=== PATIENT | female | born 1945 | race Caucasian/White ===

== ENCOUNTER 2018-01-18 16:32 | Emergency (ER) | payer MEDICARE, MEDICAID ==
[~2018-01-18] VITALS: Ht 162.6 cm; Wt 113.0 kg
[~2018-01-18 16:32] MED LIST: AMBIEN PO; ASPI-1159 PO; ATOR40TA70 PO; FURO40TA5 PO; GLIP10TA10 PO; HYDR-4135 PO; ISOS60TA4 PO; LINA5TAB PO; LISI10TA5 PO; OMEP20CA10 PO; VALS320T2 PO; ZOLP10TA6 PO
[2018-01-18] MEDS ORDERED: INSU100I28 SQ (16:51)
[2018-01-18] MEDS ORDERED: TICA90TA PO (16:51)
[2018-01-18] MEDS ORDERED: MAGNESIUM/ALUMINUM HYDROXIDE/SIMETHICONE 30ML UDC PO STA (18:05)
[2018-01-18] MEDS ORDERED: FAMOTIDINE 20MG/2ML VIAL IV STA (18:05)
[2018-01-18] MEDS ORDERED: VISCOUS LIDOCAINE 2% 15 ML UDC PO STA (18:05)
[2018-01-18 19:08] LABS: PROTHROMBIN TIME 10.7 sec (9.4-11.6)
[2018-01-18 19:12] LABS: BASOPHILS % 0.7 % (0.0-2.0); CHLORIDE 106 mEq/L (98-107); EOSINOPHILS % 2.1 % (0.0-5.0); HEMATOCRIT. 38.6 % (36.0-48.0); HEMOGLOBIN. 13.2 g/dL (12.0-16.0); LYMPHOCYTES % 18.7 % (20.0-50.0); MEAN CORPUSCULAR VOLUME 90.6 fL (81.0-99.0); MEAN PLATELET VOLUME 7.7 fl (7.4-10.4); MONOCYTES % 5.6 % (2.0-8.0); NEUTROPHILS % 72.9 % (40.0-76.0); PLATELET 234 x1000/uL (130-400); RED BLOOD CELL COUNT 4.26 mill/uL (4.2-5.4); RED CELL DISTRIBUTION WIDTH 13.6 % (11.6-14.6)
[2018-01-18 19:19] LABS: TROPONIN I 0.02 ng/mL (0.00-0.04)
[2018-01-18] MEDS ORDERED: SODIUM CHLORIDE 0.9% 1,000 ML IV ONE (19:22)
[2018-01-18 20:11] VITALS: BP 145/75
== END 2018-01-18 20:13 | disposition home or self-care (01) ==
LOC: ER 17:34
DX: K21.9 Gastro-esophageal reflux disease without esophagitis (principal); K29.70 Gastritis, unspecified, without bleeding; N28.9 Disorder of kidney and ureter, unspecified; R20.0 Anesthesia of skin; I10 Essential (primary) hypertension; E11.9 Type 2 diabetes mellitus without complications; I25.10 Atherosclerotic heart disease of native coronary artery without angina pectoris; Z95.5 Presence of coronary angioplasty implant and graft; Z87.891 Personal history of nicotine dependence; Z88.0 Allergy status to penicillin; Z79.4 Long term (current) use of insulin; Z79.82 Long term (current) use of aspirin
CPT/HCPCS: 36415; 71045; 76705; 80053; 83605; 83690; 84484; 85025; 85610; 93005; 96374; 99285; J3490

== ENCOUNTER 2019-07-23 21:06 | Inpatient (IN) | payer MEDICARE, MEDICAID ==
[~2019-07-23] VITALS: Ht 162.6 cm; Wt 119.7 kg
[~2019-07-23 21:06] MED LIST changes: -ASPI-1159 PO; +ASPI-1393 PO; +INSU100I28 SQ; -LISI10TA5 PO; -OMEP20CA10 PO; +OMEP20CA5 PO; +TICA90TA PO
[2019-07-23] MEDS ORDERED: ASPIRIN 81MG TABLET PO ONE (21:30)
[2019-07-23] MEDS ORDERED: NITROGLYCERIN 0.4MG TABLET SL SL PRN (21:30)
[2019-07-23 21:45] LABS: BASOPHILS % 0.6 % (0.0-2.0); EOSINOPHILS % 4.2 % (0.0-5.0); HEMATOCRIT. 32.4 % (36.0-48.0); HEMOGLOBIN. 11.2 g/dL (12.0-16.0); LYMPHOCYTES % 25.8 % (20.0-50.0); MEAN CORPUSCULAR HEMOGLOBIN 30.7 pg (28.0-32.0); MEAN PLATELET VOLUME 7.4 fl (7.4-10.4); NEUTROPHILS % 60.4 % (40.0-76.0); PLATELET 201 x1000/uL (130-400); RED BLOOD CELL COUNT 3.64 mill/uL (4.2-5.4); RED CELL DISTRIBUTION WIDTH 14.2 % (11.6-14.6)
[2019-07-23 21:52] LABS: CHLORIDE 107 mEq/L (98-107)
[2019-07-23] MEDS ORDERED: ACETAMINOPHEN 325MG TABLET PO PRN (22:15)
[2019-07-23] MEDS ORDERED: IPRATROPIUM/ALBUTEROL 0.5-3(2.5)MG/3ML NEB HHN PRN (22:15)
[2019-07-24 02:28] LABS: CHLORIDE 107 mEq/L (98-107)
[2019-07-24] MEDS ORDERED: HYDRALAZINE 20MG/ML VIAL IV PRN ×2 (04:15→13:45)
[2019-07-24 06:09] LABS: BASOPHILS % 0.6 % (0.0-2.0); EOSINOPHILS % 4.4 % (0.0-5.0); HEMATOCRIT. 29.9 % (36.0-48.0); HEMOGLOBIN. 10.4 g/dL (12.0-16.0); LYMPHOCYTES % 24.6 % (20.0-50.0); MEAN CORPUSCULAR HEMOGLOBIN 30.9 pg (28.0-32.0); MEAN PLATELET VOLUME 7.5 fl (7.4-10.4); MONOCYTES % 9.5 % (2.0-8.0); NEUTROPHILS % 60.9 % (40.0-76.0); PLATELET 188 x1000/uL (130-400); RED BLOOD CELL COUNT 3.35 mill/uL (4.2-5.4); RED CELL DISTRIBUTION WIDTH 14.2 % (11.6-14.6)
[2019-07-24 06:18] LABS: T4 FREE 0.93 ng/dL (0.76-1.46)
[2019-07-24] MEDS ORDERED: ENOXAPARIN 40MG/0.4ML SYR SUBCUT SCH (08:00)
[2019-07-24 09:30] VITALS: BP 169/50
[2019-07-24] MEDS ORDERED: DOXA2TAB2 PO (11:12)
[2019-07-24] MEDS ORDERED: LORA10TA7 PO (11:12)
[2019-07-24] MEDS ORDERED: LOSA100T32 PO (11:19)
[2019-07-24 12:00] VITALS: BP 153/42
[2019-07-24] MEDS: AMLODIPINE 5MG TABLET PO SCH (12:00)
[2019-07-24] MEDS ORDERED: HYDROCODONE/ACETAMINOPHEN 5/325MG TABLET PO PRN ×2 (12:00→15:45)
[2019-07-24] MEDS ORDERED: LORAZEPAM 2MG/ML CPJ IV PRN (12:00)
[2019-07-24] MEDS: ASPIRIN 81MG EC TABLET PO SCH (12:48)
[2019-07-24 13:15] LABS: CREATINE KINASE MB FRACTION 1.3 ng/mL (0.5-3.6)
[2019-07-24 13:30] VITALS: BP 153/42
[2019-07-24] MEDS ORDERED: REGADENOSON 0.4 MG/5 ML IV NR (13:30)
[2019-07-24] MEDS ORDERED: REGADENOSON 0.4 MG/5 ML IV ONE (14:29)
[2019-07-24] MEDS ORDERED: DIPHENHYDRAMINE 50MG/ML VIAL IV PRN (15:45)
[2019-07-24] MEDS ORDERED: PNEUMOCOCCAL 23-VAL P-SAC VAC 0.5 ML IM ONE (15:45)
[2019-07-24] MEDS ORDERED: IPRATROPIUM/ALBUTEROL 0.5-3(2.5)MG/3ML NEB HHN PRN (15:45)
[2019-07-24] MEDS ORDERED: LACTULOSE 20G/30ML UDC PO PRN (15:45)
[2019-07-24 15:59] LABS: BG BASE EXCESS -0.7 mmol/L (-2.0-2.0); BG CARBOXYHEMOGLOBIN 0.3 % (0.5-1.5); BG DEOXYHEMOGLOBIN 5.8 % (0.0-5.0); BG HCO3 ACT 23.4 mmol/L (22.0-26.0); BG METHEMOGLOBIN 0.3 % (0.0-1.5); BG OXYGEN SATURATION 94.2 % (92.0-98.5); BG OXYHEMOGLOBIN 93.6 % (94.0-97.0); BG PCO2 36.7 mmHg (35.0-45.0); BG PH 7.422 (7.350-7.450); BG PO2 71.2 mmHg (75.0-100.0); BG SAMPLE SITE RIGHT BRACHIAL; BG TOTAL HEMOGLOBIN 11.5 g/dL (12.0-18.0); BG VENT MODE ROOM AIR
[2019-07-24 16:00] VITALS: BP 149/35
[2019-07-24] MEDS ORDERED: LEVOFLOXACIN 500MG PREMIX 100 ML IV SCH (17:30)
[2019-07-24] MEDS ORDERED: DEXTROSE 50% WATER 50ML SYRINGE IV PRN (17:45)
[2019-07-24 17:58] LABS: CREATINE KINASE 117 IU/L (26-192)
[2019-07-24] MEDS: INSULIN LISPRO 100 UNITS/ML SUBCUT SCH ×2 (18:32→22:00)
[2019-07-24] MEDS ORDERED: SIMETHICONE 40 MG/0.6 ML 30ML PO PRN (18:40)
[2019-07-24 20:00] VITALS: BP 157/48
[2019-07-24] MEDS ORDERED: ENOXAPARIN 30MG/0.3ML SYR SUBCUT SCH (21:00)
[2019-07-24 21:52] LABS: PROTHROMBIN TIME 10.6 sec (9.6-11.0)
[2019-07-24] MEDS: FLUTICASONE PROPIONATE 50MCG/SPRAY BOTTLE BOTHNSTRLS SCH (21:59)
[2019-07-24] MEDS: BLOOD SUGAR DIAGNOSTIC STRIP TEST SCH (21:59)
[2019-07-24] MEDS: FAMOTIDINE 20MG TABLET PO SCH (21:59)
[2019-07-24 22:44] LABS: CLARITY URINE CLOUDY (CLEAR); COLOR URINE YELLOW (YELLOW); KETONES URINE NEGATIVE (NEGATIVE); LEUKOCYTE ESTERASE URINE TRACE (NEGATIVE); NITRITE URINE POSITIVE (NEGATIVE); OCCULT BLOOD URINE TRACE (NEGATIVE); PH URINE 5.5 (4.5-8.0); PROTEIN URINE 3+ (NEGATIVE); SPECIFIC GRAVITY URINE 1.011 (1.005-1.030); UROBILINOGEN URINE 0.2 E.U./dL (0.2-1.0)
[2019-07-24] MEDS: ENOXAPARIN 30MG/0.3ML SYR SUBCUT SCH (23:00)
[2019-07-24 23:01] LABS: *AMPHETAMINES SCREEN URINE NEGATIVE (NEGATIVE); *BARBITURATES SCREEN URINE NEGATIVE (NEGATIVE); *BENZODIAZEPINES SCREEN URINE NEGATIVE (NEGATIVE); *COCAINE SCREEN URINE NEGATIVE (NEGATIVE); METHADONE URINE SCREEN NEGATIVE (NEGATIVE); OPIATES URINE SCREEN NEGATIVE (NEGATIVE)
[2019-07-24 23:02] LABS: CANNABINOID URINE SCREEN NEGATIVE (NEGATIVE); PHENCYCLIDINE URINE SCREEN NEGATIVE (NEGATIVE)
[2019-07-25] VITALS: BP 144/52
[2019-07-25 04:00] VITALS: BP 141/67
[2019-07-25 06:07] LABS: HEMATOCRIT 30.4 % (36.0-48.0); HEMOGLOBIN 10.3 g/dL (12.0-16.0); MEAN CORPUSCULAR HEMOGLOBIN 30.6 pg (28.0-32.0); MEAN CORPUSCULAR VOLUME 90.1 fL (81.0-99.0); PLATELET 184 x1000/uL (130-400); RED BLOOD CELL COUNT 3.37 mill/uL (4.2-5.4); RED CELL DISTRIBUTION WIDTH 14.4 % (11.6-14.6)
[2019-07-25] MEDS: BLOOD SUGAR DIAGNOSTIC STRIP TEST SCH ×2 (06:19→12:40)
[2019-07-25 06:39] LABS: TOTAL IRON BINDING CAPACITY 263 ug/dL (250-450)
[2019-07-25 08:00] VITALS: BP 145/59
[2019-07-25] MEDS: INSULIN LISPRO 100 UNITS/ML SUBCUT SCH ×2 (08:10→13:10)
[2019-07-25] MEDS: FLUTICASONE PROPIONATE 50MCG/SPRAY BOTTLE BOTHNSTRLS SCH (09:03)
[2019-07-25] MEDS: FAMOTIDINE 20MG TABLET PO SCH (09:03)
[2019-07-25] MEDS: ASPIRIN 81MG EC TABLET PO SCH (09:03)
[2019-07-25] MEDS: AMLODIPINE 5MG TABLET PO SCH (09:03)
[2019-07-25] MEDS: ENOXAPARIN 30MG/0.3ML SYR SUBCUT SCH (09:04)
[2019-07-25 12:00] VITALS: BP 139/60
== END 2019-07-25 14:20 | disposition home or self-care (01) | DRG 205 ==
LOC: ER 22:00 → 7WST 22:11 → EDBEDREQTM 22:15 → EDBEDREQ 22:15 → ENRESERV 07-24 07:17
PROVIDERS: ADMIT Internal Medicine; ATTEND Internal Medicine
DX: M94.0 Chondrocostal junction syndrome [Tietze] (principal); I50.33 Acute on chronic diastolic (congestive) heart failure; N39.0 Urinary tract infection, site not specified; D68.59 Other primary thrombophilia; Z68.42 Body mass index [BMI] 45.0-49.9, adult; E66.2 Morbid (severe) obesity with alveolar hypoventilation; I16.0 Hypertensive urgency; I11.0 Hypertensive heart disease with heart failure; D64.9 Anemia, unspecified; E11.65 Type 2 diabetes mellitus with hyperglycemia; E66.9 Obesity, unspecified; E78.5 Hyperlipidemia, unspecified; I25.10 Atherosclerotic heart disease of native coronary artery without angina pectoris; I35.0 Nonrheumatic aortic (valve) stenosis; J06.9 Acute upper respiratory infection, unspecified; J32.9 Chronic sinusitis, unspecified; R00.1 Bradycardia, unspecified; I07.1 Rheumatic tricuspid insufficiency; Z87.891 Personal history of nicotine dependence; Z95.5 Presence of coronary angioplasty implant and graft; I25.2 Old myocardial infarction; Z88.0 Allergy status to penicillin; Z79.899 Other long term (current) drug therapy; Z71.3 Dietary counseling and surveillance
CPT/HCPCS: 36415; 36600; 71045; 71250; 78452; 80048; 80061; 80305; 81003; 82375; 82550; 82553; 82805; 82962; 83036; 83540; 83550; 83880; 84439; 84443; 84484; 85027; 90732; 93005; 93017; 93306; 96374; 99285; A9500; J0360; J1650; J1815; J1956; J2785

== ENCOUNTER → 2021-04-09 | Outpatient (CLI) | payer MEDICARE, MEDICAID ==
[~2021-04-09] MED LIST changes: -AMBIEN PO; -ASPI-1393 PO; +ASPI-1497 PO; +DOXA2TAB2 PO; -ISOS60TA4 PO; +LORA10TA7 PO; +LOSA100T32 PO; +OMEP20CA14 PO; -OMEP20CA5 PO; -TICA90TA PO; -VALS320T2 PO
== END | disposition home or self-care (01) ==
LOC: RAD 07:33
PROVIDERS: ATTEND Specialist
DX: R06.02 Shortness of breath (principal); R05 Cough; M47.814 Spondylosis without myelopathy or radiculopathy, thoracic region
CPT/HCPCS: 71046

== ENCOUNTER 2021-04-16 12:59 | Inpatient (IN) | payer MEDICARE, MEDICAID ==
[~2021-04-16] VITALS: Ht 162.6 cm; Wt 117.1 kg
[2021-04-16] MEDS ORDERED: PHENYLEPHRINE HCL 0.5% 15ML NASAL SPRAY BOTHNSTRLS ONE (13:15)
[2021-04-16 14:10] LABS: CHLORIDE 108 mEq/L (98-107)
[2021-04-16 14:11] LABS: BASOPHILS % 0.8 % (0.0-2.0); EOSINOPHILS % 1.3 % (0.0-5.0); LYMPHOCYTES % 24.4 % (20.0-50.0); MEAN CORPUSCULAR HEMOGLOBIN 22.2 pg (28.0-32.0); MEAN CORPUSCULAR VOLUME 71.9 fL (81.0-99.0); MEAN PLATELET VOLUME 7.5 fl (7.4-10.4); MONOCYTES % 8.5 % (2.0-8.0); PLATELET 273 x1000/uL (130-400); RED BLOOD CELL COUNT 2.68 mill/uL (4.2-5.4); RED CELL DISTRIBUTION WIDTH 24.8 % (11.6-14.6)
[2021-04-16 14:25] LABS: HEMATOCRIT. 19.3 % (36.0-48.0)
[2021-04-16] MEDS: LOSARTAN POTASSIUM 25 MG TABLET PO SCH (14:50)
[2021-04-16] MEDS: FUROSEMIDE 40MG/4ML VIAL IVP SCH (14:50)
[2021-04-16] MEDS ORDERED: HYDROCODONE/ACETAMINOPHEN 5/325MG TABLET PO PRN (15:15)
[2021-04-16] MEDS ORDERED: DOCUSATE SODIUM 100MG CAPSULE PO PRN (15:15)
[2021-04-16] MEDS ORDERED: IPRATROPIUM/ALBUTEROL 0.5-3(2.5)MG/3ML NEB NEB PRN (15:15)
[2021-04-16] MEDS ORDERED: NA PHOS,M-B/NA PHOS,DI-BA ENEMA 118ML PR PRN (15:15)
[2021-04-16] MEDS ORDERED: MORPHINE SULFATE 2 MG/ML CPJ (NOT FOR IM USE) IV PRN (15:15)
[2021-04-16] MEDS ORDERED: ACETAMINOPHEN 650MG SUPP PR PRN (15:15)
[2021-04-16] MEDS ORDERED: MAGNESIUM/ALUMINUM HYDROXIDE/SIMETHICONE 30ML UDC PO PRN (15:15)
[2021-04-16] MEDS ORDERED: LORAZEPAM 0.5MG TABLET PO PRN (15:15)
[2021-04-16] MEDS ORDERED: DEXTROSE 50% WATER 50ML SYRINGE IV PRN (15:15)
[2021-04-16] MEDS ORDERED: GUAIFENESIN 200MG/10ML SUGAR FREE UDC PO PRN (15:15)
[2021-04-16] MEDS ORDERED: DIPHENHYDRAMINE 50MG/ML VIAL IV PRN (15:15)
[2021-04-16] MEDS ORDERED: ONDANSETRON HCL 4MG/2ML INJ IV PRN (15:15)
[2021-04-16] MEDS ORDERED: ACETAMINOPHEN 325MG TABLET PO PRN (15:15)
[2021-04-16] MEDS ORDERED: CLONIDINE 0.1MG TABLET PO PRN (15:15)
[2021-04-16 15:52] LABS: PLATELET ESTIMATE NORMAL
[2021-04-16 15:54] LABS: D-DIMER 0.95 mg/L FEU (<0.50); INR 1.4
[2021-04-16] MEDS: PANTOPRAZOLE SODIUM 40 MG/VIAL IV SCH (16:48)
[2021-04-16] MEDS: INSULIN LISPRO 100 UNITS/ML SUBCUT SCH ×2 (18:48→21:08)
[2021-04-16] MEDS: BLOOD SUGAR DIAGNOSTIC STRIP TEST SCH ×2 (18:58→21:02)
[2021-04-16] MEDS ORDERED: FUROSEMIDE 40MG/4ML VIAL IVP NR (19:00)
[2021-04-16] MEDS: ATORVASTATIN CALCIUM 40MG TABLET PO SCH (21:16)
[2021-04-16 22:36] LABS: CREATINE KINASE MB FRACTION 1.3 ng/mL (0.5-3.6)
[2021-04-16 23:00] VITALS: BP 165/46
[2021-04-16 23:50] LABS: HEMOGLOBIN 7.2 g/dL (12.0-16.0)
[2021-04-17] VITALS (16 sets, daily range): BP systolic 136–203; BP diastolic 29–98
[2021-04-17 00:04] LABS: INR 1.2; PROTHROMBIN TIME 12.9 sec (9.6-11.0)
[2021-04-17] MEDS ORDERED: ALPR-339 PO (00:45)
[2021-04-17] MEDS ORDERED: HYDR-4135 PO (00:47)
[2021-04-17] MEDS ORDERED: RIVA20TA PO (00:50)
[2021-04-17] MEDS ORDERED: *PATIENT'S OWN MEDICATION STORAGE XX SCH (04:00)
[2021-04-17] MEDS: BLOOD SUGAR DIAGNOSTIC STRIP TEST SCH ×4 (06:27→21:16)
[2021-04-17] MEDS: INSULIN LISPRO 100 UNITS/ML SUBCUT SCH ×4 (06:28→21:23)
[2021-04-17 07:18] LABS: CHLORIDE 112 mEq/L (98-107)
[2021-04-17 07:27] LABS: BASOPHILS % 0.9 % (0.0-2.0); HEMOGLOBIN. 7.2 g/dL (12.0-16.0); LYMPHOCYTES % 21.6 % (20.0-50.0); MEAN CORPUSCULAR HEMOGLOBIN 23.7 pg (28.0-32.0); MEAN CORPUSCULAR VOLUME 76.1 fL (81.0-99.0); MEAN PLATELET VOLUME 8.1 fl (7.4-10.4); MONOCYTES % 10.4 % (2.0-8.0); NEUTROPHILS % 64.1 % (40.0-76.0); PLATELET 238 x1000/uL (130-400); RED BLOOD CELL COUNT 3.02 mill/uL (4.2-5.4); RED CELL DISTRIBUTION WIDTH 24.8 % (11.6-14.6)
[2021-04-17 07:36] LABS: CLARITY URINE CLEAR (CLEAR); COLOR URINE YELLOW (YELLOW); KETONES URINE NEGATIVE (NEGATIVE); LEUKOCYTE ESTERASE URINE NEGATIVE (NEGATIVE); NITRITE URINE NEGATIVE (NEGATIVE); OCCULT BLOOD URINE NEGATIVE (NEGATIVE); PH URINE 5.5 (4.5-8.0); PROTEIN URINE 3+ (NEGATIVE); SPECIFIC GRAVITY URINE 1.014 (1.005-1.030); UROBILINOGEN URINE 0.2 E.U./dL (0.2-1.0)
[2021-04-17 07:37] LABS: LDL CHOLESTEROL 46 mg/dL (5-100)
[2021-04-17 07:38] LABS: CREATINE KINASE 70 IU/L (26-192); FOLIC ACID (FOLATE) SERUM 9.9 ng/mL (>5.38); TOTAL IRON BINDING CAPACITY 410 ug/dL (250-450)
[2021-04-17 07:39] LABS: HDL CHOLESTEROL 31 mg/dL (40-59)
[2021-04-17 07:41] LABS: T4 FREE 1.21 ng/dL (0.76-1.46)
[2021-04-17] MEDS: LOSARTAN POTASSIUM 25 MG TABLET PO SCH (09:00)
[2021-04-17] MEDS: PANTOPRAZOLE SODIUM 40 MG/VIAL IV SCH (09:06)
[2021-04-17] MEDS: FUROSEMIDE 40MG/4ML VIAL IVP SCH (09:06)
[2021-04-17] MEDS ORDERED: CEFAZOLIN 1000MG PREMIX 0 ML IV ONE (12:10)
[2021-04-17] MEDS ORDERED: GENTAMICIN/NS IRRIGATION 500 ML IR ONE (12:18)
[2021-04-17] MEDS ORDERED: GENTAMICIN SULF 40MG/ML 2ML VIAL ONE (12:20)
[2021-04-17] MEDS ORDERED: LIDOCAINE HCL 1% 20ML VIAL (Pyxis) INJ ONE ×2 (12:22→13:58)
[2021-04-17] MEDS ORDERED: CLINDAMYCIN 900 MG in DEXTROSE 5% WATER 50 ML IV SCH (12:30)
[2021-04-17] MEDS ORDERED: CLINDAMYCIN 900 MG PREMIX 50 ML IV SCH (12:45)
[2021-04-17] MEDS ORDERED: CLINDAMYCIN 900 MG in DEXTROSE 5% WATER 50 ML IV NR (12:45)
[2021-04-17] MEDS ORDERED: FENTANYL CITRATE/PF 50MCG/ML 2ML VIAL ONE ×2 (12:51→14:22)
[2021-04-17] MEDS ORDERED: MIDAZOLAM HCL 2 MG/2 ML VIAL ONE ×3 (12:52→14:51)
[2021-04-17] MEDS ORDERED: IODIXANOL 320MG/ML 200ML BOTTLE ONE (13:06)
[2021-04-17] MEDS ORDERED: HYDRALAZINE 20MG/ML VIAL ONE (14:44)
[2021-04-17] MEDS ORDERED: AMIODARONE HCL 900 MG in DEXT 5% WATER 482 ML IV SCH (16:15)
[2021-04-17] MEDS ORDERED: IRON SUCROSE COMPLEX 100 MG/5 ML ML IV SCH (17:00)
[2021-04-17] MEDS: ATORVASTATIN CALCIUM 40MG TABLET PO SCH (21:16)
[2021-04-18] VITALS (10 sets, daily range): BP systolic 143–197; BP diastolic 49–77
[2021-04-18] MEDS: CLINDAMYCIN 600 MG in DEXTROSE 5% WATER 50 ML IV SCH ×2 (00:13→08:20)
[2021-04-18] MEDS ORDERED: AMLODIPINE 10MG TABLET PO SCH (02:00)
[2021-04-18] MEDS: BLOOD SUGAR DIAGNOSTIC STRIP TEST SCH ×2 (06:08→11:28)
[2021-04-18 06:21] LABS: BASOPHILS % 0.6 % (0.0-2.0); EOSINOPHILS % 2.3 % (0.0-5.0); HEMATOCRIT. 26.2 % (36.0-48.0); HEMOGLOBIN. 8.2 g/dL (12.0-16.0); LYMPHOCYTES % 14.4 % (20.0-50.0); MEAN CORPUSCULAR HEMOGLOBIN 24.4 pg (28.0-32.0); MEAN CORPUSCULAR VOLUME 77.9 fL (81.0-99.0); MEAN PLATELET VOLUME 7.4 fl (7.4-10.4); MONOCYTES % 10.4 % (2.0-8.0); NEUTROPHILS % 72.3 % (40.0-76.0); PLATELET 231 x1000/uL (130-400); RED BLOOD CELL COUNT 3.37 mill/uL (4.2-5.4); RED CELL DISTRIBUTION WIDTH 25.4 % (11.6-14.6)
[2021-04-18 06:38] LABS: CHLORIDE 109 mEq/L (98-107)
[2021-04-18] MEDS: FUROSEMIDE 40MG/4ML VIAL IVP SCH (08:21)
[2021-04-18] MEDS: PANTOPRAZOLE SODIUM 40 MG/VIAL IV SCH (08:21)
[2021-04-18] MEDS: INSULIN LISPRO 100 UNITS/ML SUBCUT SCH ×2 (08:22→11:47)
[2021-04-18] MEDS: LOSARTAN POTASSIUM 25 MG TABLET PO SCH (08:32)
[2021-04-18] MEDS ORDERED: LOSARTAN POTASSIUM 100 MG TABLET PO NR (11:45)
[2021-04-18] MEDS ORDERED: AMIODARONE HCL 200 MG TABLET PO SCH (12:00)
[2021-04-18] MEDS ORDERED: FURO-151 MT (12:43)
[2021-04-18] MEDS ORDERED: AMI2 PO (12:43)
[2021-04-18] MEDS ORDERED: TRAM50TA3 MT ×2 (12:43→12:44)
[2021-04-18] MEDS ORDERED: SULF1TAB48 MT (12:58)
== END 2021-04-18 15:15 | disposition home or self-care (01) | DRG 243 ==
LOC: ER 12:59 → EDBEDREQ 15:45 → ENRESERV 22:12 → 5WST 04-17 00:04 → 3WST 04-17 16:11
PROVIDERS: ADMIT Internal Medicine; ATTEND Internal Medicine
PROC: 30233M1 Transfusion of Nonautologous Plasma Cryoprecipitate into Peripheral Vein, Percutaneous Approach (ICD-10-PCS; 2021-04-16)
PROC: 30233N1 Transfusion of Nonautologous Red Blood Cells into Peripheral Vein, Percutaneous Approach (ICD-10-PCS; 2021-04-16)
PROC: 0JH606Z Insertion of Pacemaker, Dual Chamber into Chest Subcutaneous Tissue and Fascia, Open Approach (ICD-10-PCS; principal; 2021-04-17)
PROC: 02HK3JZ Insertion of Pacemaker Lead into Right Ventricle, Percutaneous Approach (ICD-10-PCS; 2021-04-17)
PROC: 02H63JZ Insertion of Pacemaker Lead into Right Atrium, Percutaneous Approach (ICD-10-PCS; 2021-04-17)
PROC: B517YZZ Fluoroscopy of Left Subclavian Vein using Other Contrast (ICD-10-PCS; 2021-04-17)
PROC: 4A023N6 Measurement of Cardiac Sampling and Pressure, Right Heart, Percutaneous Approach (ICD-10-PCS; 2021-04-17)
PROC: 5A2204Z Restoration of Cardiac Rhythm, Single (ICD-10-PCS; 2021-04-17)
DX: I49.5 Sick sinus syndrome (principal); Z68.41 Body mass index [BMI] 40.0-44.9, adult; I48.4 Atypical atrial flutter; I48.0 Paroxysmal atrial fibrillation; I16.0 Hypertensive urgency; I27.29 Other secondary pulmonary hypertension; I10 Essential (primary) hypertension; I25.10 Atherosclerotic heart disease of native coronary artery without angina pectoris; R04.0 Epistaxis; E11.9 Type 2 diabetes mellitus without complications; E78.5 Hyperlipidemia, unspecified; D50.9 Iron deficiency anemia, unspecified; E66.9 Obesity, unspecified; I35.0 Nonrheumatic aortic (valve) stenosis; F41.0 Panic disorder [episodic paroxysmal anxiety]; Z20.822 Contact with and (suspected) exposure to COVID-19; E88.09 Other disorders of plasma-protein metabolism, not elsewhere classified; Z53.20 Procedure and treatment not carried out because of patient's decision for unspecified reasons; I25.2 Old myocardial infarction; Z88.0 Allergy status to penicillin; Z88.8 Allergy status to other drugs, medicaments and biological substances; Z79.899 Other long term (current) drug therapy; Z79.4 Long term (current) use of insulin; Z79.82 Long term (current) use of aspirin; Z95.5 Presence of coronary angioplasty implant and graft; Z79.01 Long term (current) use of anticoagulants; Z87.891 Personal history of nicotine dependence; Z86.16 Personal history of COVID-19; Z87.01 Personal history of pneumonia (recurrent); Z82.49 Family history of ischemic heart disease and other diseases of the circulatory system
CPT/HCPCS: 33208; 36415; 71045; 75820; 76700; 80048; 80053; 80061; 81003; 82550; 82553; 82607; 82728; 82746; 82962; 83036; 83540; 83550; 83735; 83880; 84439; 84443; 84484; 85014; 85018; 85025; 85044; 85049; 85379; 85384; 86850; 86900; 86920; 86927; 87426; 92960; 93005; 93306; 93451; 93970; 99291; C1785; C1893; C1898; C9113; J0282; J0360; J0690; J1580; J1644; J1815; J1940; J2250; J3010; J3490; J7040; J7060; P9016; P9017; Q9967

== ENCOUNTER 2021-07-06 09:07 | Inpatient (IN) | payer MEDICARE, MEDICAID ==
[~2021-07-06] VITALS: Ht 157.5 cm; Wt 115.4 kg
[~2021-07-06 09:07] MED LIST changes: +ALPR-339 PO; +AMI2 PO; -ASPI-1497 PO; +FURO-151 MT; -OMEP20CA14 PO; +SULF1TAB48 MT; +TRAM50TA3 MT
[2021-07-06 10:17] LABS: BASOPHILS % 0.7 % (0.0-2.0); EOSINOPHILS % 1.6 % (0.0-5.0); LYMPHOCYTES % 12.1 % (20.0-50.0); MEAN CORPUSCULAR HEMOGLOBIN 23.6 pg (28.0-32.0); MEAN CORPUSCULAR VOLUME 76.1 fL (81.0-99.0); MEAN PLATELET VOLUME 7.5 fl (7.4-10.4); NEUTROPHILS % 76.6 % (40.0-76.0); PLATELET 286 x1000/uL (130-400); RED BLOOD CELL COUNT 2.51 mill/uL (4.2-5.4); RED CELL DISTRIBUTION WIDTH 22.4 % (11.6-14.6)
[2021-07-06 10:20] LABS: CHLORIDE 106 mEq/L (98-107)
[2021-07-06 10:25] LABS: HEMOGLOBIN. 5.9 g/dL (12.0-16.0)
[2021-07-06 10:26] LABS: HEMATOCRIT. 19.1 % (36.0-48.0)
[2021-07-06 10:53] LABS: PLATELET ESTIMATE NORMAL
[2021-07-06] MEDS ORDERED: ENALAPRIL 1.25MG/ML VIAL 1ML IV ONE (12:45)
[2021-07-06] MEDS ORDERED: ENALAPRIL 2.5MG/2ML VIAL 2ML IV ONE (12:45)
[2021-07-06] MEDS ORDERED: FUROSEMIDE 40MG/4ML VIAL IVP ONE (12:45)
[2021-07-06] MEDS ORDERED: ACETAMINOPHEN 325MG TABLET PO PRN (13:15)
[2021-07-06] MEDS ORDERED: ONDANSETRON HCL 4MG/2ML INJ IV PRN (13:15)
[2021-07-06] MEDS: FUROSEMIDE 40MG/4ML VIAL IVP SCH ×2 (14:15→18:32)
[2021-07-06] MEDS ORDERED: ENALAPRIL 1.25MG/ML VIAL 1ML IV NR (14:30)
[2021-07-06] MEDS: AMIODARONE HCL 200 MG TABLET PO SCH (15:55)
[2021-07-06] MEDS: BLOOD SUGAR DIAGNOSTIC STRIP TEST SCH ×2 (17:00→20:44)
[2021-07-06] MEDS ORDERED: DEXTROSE 50% WATER 50ML SYRINGE IV PRN (17:00)
[2021-07-06 17:15] VITALS: BP 135/39
[2021-07-06] MEDS: INSULIN LISPRO 100 UNITS/ML SUBCUT SCH ×2 (17:31→20:44)
[2021-07-06 17:35] VITALS: BP 135/39
[2021-07-06] MEDS: FERROUS SULFATE 325MG TABLET PO SCH (18:32)
[2021-07-06] MEDS: DOCUSATE SODIUM 100MG CAPSULE PO SCH (18:32)
[2021-07-06 20:00] VITALS: BP 138/48
[2021-07-06 22:07] VITALS: BP 141/40
[2021-07-06 22:37] VITALS: BP 158/54
[2021-07-06 23:29] VITALS: BP 131/46
[2021-07-07] VITALS (13 sets, daily range): BP systolic 115–153; BP diastolic 40–63
[2021-07-07] MEDS: BLOOD SUGAR DIAGNOSTIC STRIP TEST SCH ×4 (06:17→20:53)
[2021-07-07] MEDS: INSULIN LISPRO 100 UNITS/ML SUBCUT SCH ×4 (06:17→20:44)
[2021-07-07] MEDS: FERROUS SULFATE 325MG TABLET PO SCH (07:03)
[2021-07-07 08:05] LABS: BASOPHILS % 0.9 % (0.0-2.0); EOSINOPHILS % 3.2 % (0.0-5.0); HEMATOCRIT. 23.1 % (36.0-48.0); HEMOGLOBIN. 7.5 g/dL (12.0-16.0); MEAN CORPUSCULAR HEMOGLOBIN 24.6 pg (28.0-32.0); MEAN CORPUSCULAR VOLUME 76.3 fL (81.0-99.0); MEAN PLATELET VOLUME 7.3 fl (7.4-10.4); MONOCYTES % 10.4 % (2.0-8.0); NEUTROPHILS % 67.5 % (40.0-76.0); PLATELET 275 x1000/uL (130-400); RED BLOOD CELL COUNT 3.03 mill/uL (4.2-5.4); RED CELL DISTRIBUTION WIDTH 21.4 % (11.6-14.6)
[2021-07-07 08:23] LABS: FOLIC ACID (FOLATE) SERUM 15.1 ng/mL (>5.38)
[2021-07-07] MEDS: DOCUSATE SODIUM 100MG CAPSULE PO SCH ×2 (10:18→17:42)
[2021-07-07] MEDS: AMIODARONE HCL 200 MG TABLET PO SCH (10:18)
[2021-07-07] MEDS: ASCORBIC ACID 500 MG TABLET PO SCH (13:34)
[2021-07-07] MEDS: FUROSEMIDE 40MG/4ML VIAL IVP SCH ×2 (13:34→17:41)
[2021-07-07] MEDS ORDERED: FERR-71 MT (14:35)
[2021-07-07] MEDS ORDERED: PROT40 MT (14:35)
[2021-07-07] MEDS: IRON SUCROSE COMPLEX 100 MG/5 ML ML IV SCH (17:42)
[2021-07-07 21:55] LABS: HEMATOCRIT 29.5 % (36.0-48.0); HEMOGLOBIN 9.5 g/dL (12.0-16.0)
[2021-07-07 22:04] LABS: INR 1.1; PROTHROMBIN TIME 11.7 sec (9.6-11.0)
[2021-07-08] VITALS (7 sets, daily range): BP systolic 147–196; BP diastolic 49–82
[2021-07-08] MEDS: BLOOD SUGAR DIAGNOSTIC STRIP TEST SCH ×4 (06:46→21:00)
[2021-07-08] MEDS: INSULIN LISPRO 100 UNITS/ML SUBCUT SCH ×5 (06:55→22:44)
[2021-07-08 07:49] LABS: BASOPHILS % 0.9 % (0.0-2.0); EOSINOPHILS % 3.5 % (0.0-5.0); HEMATOCRIT. 27.6 % (36.0-48.0); HEMOGLOBIN. 8.8 g/dL (12.0-16.0); LYMPHOCYTES % 18.6 % (20.0-50.0); MEAN CORPUSCULAR HEMOGLOBIN 25.4 pg (28.0-32.0); MEAN CORPUSCULAR VOLUME 79.7 fL (81.0-99.0); MEAN PLATELET VOLUME 7.4 fl (7.4-10.4); PLATELET 264 x1000/uL (130-400); RED BLOOD CELL COUNT 3.47 mill/uL (4.2-5.4); RED CELL DISTRIBUTION WIDTH 21.3 % (11.6-14.6)
[2021-07-08] MEDS: DOCUSATE SODIUM 100MG CAPSULE PO SCH ×2 (08:53→17:12)
[2021-07-08] MEDS: AMIODARONE HCL 200 MG TABLET PO SCH (08:53)
[2021-07-08] MEDS: ASCORBIC ACID 500 MG TABLET PO SCH (08:53)
[2021-07-08] MEDS: FUROSEMIDE 40MG/4ML VIAL IVP SCH ×2 (08:53→17:12)
[2021-07-08] MEDS ORDERED: POTASSIUM CHLORIDE 20MEQ TABLET SR PO SCH (11:15)
[2021-07-08] MEDS: PANTOPRAZOLE SODIUM 40 MG/VIAL IV SCH ×2 (11:28→22:26)
[2021-07-08] MEDS: POTASSIUM CHLORIDE 20MEQ TABLET SR PO SCH (11:28)
[2021-07-08] MEDS ORDERED: SORBITOL 70% SOLN 30ML PO SCH ×2 (14:00→18:00)
[2021-07-08] MEDS: IRON SUCROSE COMPLEX 100 MG/5 ML ML IV SCH (14:16)
[2021-07-09 00:34] VITALS: BP 118/47
[2021-07-09 04:00] VITALS: BP 116/52
[2021-07-09] MEDS: BLOOD SUGAR DIAGNOSTIC STRIP TEST SCH ×4 (06:53→21:08)
[2021-07-09] MEDS: INSULIN LISPRO 100 UNITS/ML SUBCUT SCH ×4 (06:54→21:08)
[2021-07-09 08:00] VITALS: BP 130/57
[2021-07-09] MEDS: POTASSIUM CHLORIDE 20MEQ TABLET SR PO SCH (09:00)
[2021-07-09] MEDS: AMIODARONE HCL 200 MG TABLET PO SCH (09:00)
[2021-07-09] MEDS: ASCORBIC ACID 500 MG TABLET PO SCH (09:00)
[2021-07-09] MEDS: DOCUSATE SODIUM 100MG CAPSULE PO SCH ×2 (09:00→17:39)
[2021-07-09 09:33] LABS: BASOPHILS % 0.7 % (0.0-2.0); EOSINOPHILS % 1.6 % (0.0-5.0); HEMATOCRIT. 31.7 % (36.0-48.0); LYMPHOCYTES % 12.8 % (20.0-50.0); MEAN CORPUSCULAR HEMOGLOBIN 25.3 pg (28.0-32.0); MEAN CORPUSCULAR VOLUME 80.6 fL (81.0-99.0); MEAN PLATELET VOLUME 7.2 fl (7.4-10.4); MONOCYTES % 10.2 % (2.0-8.0); NEUTROPHILS % 74.7 % (40.0-76.0); PLATELET 324 x1000/uL (130-400); RED BLOOD CELL COUNT 3.93 mill/uL (4.2-5.4); RED CELL DISTRIBUTION WIDTH 21.9 % (11.6-14.6)
[2021-07-09 09:39] LABS: INR 1.1; PROTHROMBIN TIME 11.7 sec (9.6-11.0)
[2021-07-09] MEDS: FUROSEMIDE 40MG/4ML VIAL IVP SCH ×2 (10:57→17:39)
[2021-07-09] MEDS: PANTOPRAZOLE SODIUM 40 MG/VIAL IV SCH ×2 (10:57→21:07)
[2021-07-09 12:00] VITALS: BP 158/56
[2021-07-09] MEDS: IRON SUCROSE COMPLEX 100 MG/5 ML ML IV SCH (15:21)
[2021-07-09 16:00] VITALS: BP 168/52
[2021-07-09 20:00] VITALS: BP 132/46
[2021-07-10] VITALS: BP 123/46
[2021-07-10 04:00] VITALS: BP 133/47
[2021-07-10] MEDS: INSULIN LISPRO 100 UNITS/ML SUBCUT SCH ×2 (06:31→12:09)
[2021-07-10] MEDS: BLOOD SUGAR DIAGNOSTIC STRIP TEST SCH ×2 (06:36→11:40)
[2021-07-10 07:10] LABS: BASOPHILS % 0.6 % (0.0-2.0); EOSINOPHILS % 1.7 % (0.0-5.0); HEMATOCRIT. 29.4 % (36.0-48.0); HEMOGLOBIN. 9.5 g/dL (12.0-16.0); LYMPHOCYTES % 12.9 % (20.0-50.0); MEAN CORPUSCULAR HEMOGLOBIN 25.7 pg (28.0-32.0); MEAN CORPUSCULAR VOLUME 79.3 fL (81.0-99.0); MEAN PLATELET VOLUME 7.3 fl (7.4-10.4); MONOCYTES % 11.9 % (2.0-8.0); NEUTROPHILS % 72.9 % (40.0-76.0); PLATELET 306 x1000/uL (130-400)
[2021-07-10 08:00] VITALS: BP 127/46
[2021-07-10] MEDS: ASCORBIC ACID 500 MG TABLET PO SCH (09:00)
[2021-07-10] MEDS: DOCUSATE SODIUM 100MG CAPSULE PO SCH (09:00)
[2021-07-10] MEDS: AMIODARONE HCL 200 MG TABLET PO SCH (09:00)
[2021-07-10] MEDS: POTASSIUM CHLORIDE 20MEQ TABLET SR PO SCH (09:00)
[2021-07-10] MEDS ORDERED: KCL 20MEQ/100ML PREMIX 100 ML IV ONE (10:00)
[2021-07-10] MEDS: PANTOPRAZOLE SODIUM 40 MG/VIAL IV SCH (10:11)
[2021-07-10] MEDS: FUROSEMIDE 40MG/4ML VIAL IVP SCH (10:11)
[2021-07-10] MEDS ORDERED: POTASSIUM CHLORIDE INJ 40 MEQ in DEXT 5% WATER 250 ML IV NR (10:30)
[2021-07-10] MEDS ORDERED: MIDAZOLAM HCL 5 MG/5 ML VIAL IV PRN (11:24)
[2021-07-10] MEDS ORDERED: FENTANYL CITRATE/PF 50MCG/ML 2ML VIAL ONE (11:25)
[2021-07-10] MEDS ORDERED: FENTANYL CITRATE/PF 50MCG/ML 2ML VIAL IV PRN (11:25)
[2021-07-10] MEDS ORDERED: MIDAZOLAM HCL 5 MG/5 ML VIAL ONE ×2 (11:25→11:47)
[2021-07-10 12:00] VITALS: BP 145/52
[2021-07-10 16:00] VITALS: BP 102/39
[2021-07-10] MEDS ORDERED: XAR15 MT (16:31)
[2021-07-10 18:15] VITALS: BP 142/36
== END 2021-07-10 18:53 | disposition home or self-care (01) | DRG 811 ==
LOC: ER 09:07 → 7EST 12:34 → EDBEDREQ 12:40 → EDBEDREQTM 12:40 → ENRESERV 14:08
PROVIDERS: ADMIT Internal Medicine; ATTEND Internal Medicine
PROC: 30233N1 Transfusion of Nonautologous Red Blood Cells into Peripheral Vein, Percutaneous Approach (ICD-10-PCS; 2021-07-06)
PROC: 0DBL8ZX Excision of Transverse Colon, Via Natural or Artificial Opening Endoscopic, Diagnostic (ICD-10-PCS; principal; 2021-07-10)
PROC: 0DB78ZX Excision of Stomach, Pylorus, Via Natural or Artificial Opening Endoscopic, Diagnostic (ICD-10-PCS; 2021-07-10)
DX: D50.9 Iron deficiency anemia, unspecified (principal); I50.43 Acute on chronic combined systolic (congestive) and diastolic (congestive) heart failure; E44.1 Mild protein-calorie malnutrition; J98.11 Atelectasis; Z68.42 Body mass index [BMI] 45.0-49.9, adult; I48.0 Paroxysmal atrial fibrillation; E11.9 Type 2 diabetes mellitus without complications; E66.9 Obesity, unspecified; E78.5 Hyperlipidemia, unspecified; F41.0 Panic disorder [episodic paroxysmal anxiety]; I11.0 Hypertensive heart disease with heart failure; I25.10 Atherosclerotic heart disease of native coronary artery without angina pectoris; I35.0 Nonrheumatic aortic (valve) stenosis; I49.5 Sick sinus syndrome; K29.70 Gastritis, unspecified, without bleeding; K44.9 Diaphragmatic hernia without obstruction or gangrene; R04.0 Epistaxis; D12.3 Benign neoplasm of transverse colon; K64.8 Other hemorrhoids; Z20.822 Contact with and (suspected) exposure to COVID-19; I25.2 Old myocardial infarction; Z79.01 Long term (current) use of anticoagulants; Z82.49 Family history of ischemic heart disease and other diseases of the circulatory system; Z87.891 Personal history of nicotine dependence; Z95.0 Presence of cardiac pacemaker; Z95.5 Presence of coronary angioplasty implant and graft; Z88.0 Allergy status to penicillin; Z88.8 Allergy status to other drugs, medicaments and biological substances; Z79.899 Other long term (current) drug therapy; Z79.4 Long term (current) use of insulin
CPT/HCPCS: 36415; 71045; 72110; 80048; 80053; 82607; 82728; 82746; 82962; 83540; 83550; 83735; 83880; 84484; 85014; 85018; 85025; 85044; 86850; 86900; 86920; 87426; 88305; 88312; 88313; 93005; 93970; 99291; C9113; J1815; J1940; J2250; J3010; J3480; J3490; J7060; P9016

== ENCOUNTER 2022-07-06 07:07 | Inpatient (IN) | payer MEDICARE, MEDICAID ==
[2022-07-06] VITALS (10 sets, daily range): BP systolic 13–157; BP diastolic 44–75
[~2022-07-06] VITALS: Ht 160 cm; Wt 119.3 kg
[~2022-07-06 07:07] MED LIST changes: +FERR-71 MT; -FURO-151 MT; +PROT40 MT; -SULF1TAB48 MT; +XAR15 MT
[2022-07-06] MEDS ORDERED: HEPARIN 1000 UNITS/ML 10ML ONE ×2 (07:15→09:14)
[2022-07-06] MEDS ORDERED: IODIXANOL 320MG/ML 100 ML BOTTLE IV ONE ×2 (07:15→08:47)
[2022-07-06] MEDS ORDERED: ASPIRIN/SOD BICARB/CITRIC ACID 324MG TAB EFF ONE (07:15)
[2022-07-06] MEDS ORDERED: LIDOCAINE HCL 1% 10 MG/ML 10ML VIAL ONE ×2 (07:16→07:53)
[2022-07-06] MEDS ORDERED: LOSA-20 MT (07:42)
[2022-07-06] MEDS ORDERED: FERR325T6 PO (07:43)
[2022-07-06] MEDS ORDERED: MIDAZOLAM HCL 2 MG/2 ML VIAL ONE ×2 (07:47→09:08)
[2022-07-06] MEDS ORDERED: FENTANYL CITRATE/PF 50MCG/ML 2ML VIAL ONE (07:47)
[2022-07-06] MEDS ORDERED: LIDOCAINE HCL/PF 1% 10 MG/ML 5ML VIAL ONE (07:50)
[2022-07-06] MEDS ORDERED: HYDRALAZINE 20MG/ML VIAL ONE (08:54)
[2022-07-06] MEDS ORDERED: CLOPIDOGREL 75MG TABLET ONE (09:40)
[2022-07-06] MEDS ORDERED: NITROGLYCERIN 50MCG/ML 10ML VIAL (CATH LAB) IV ONE (09:57)
[2022-07-06] MEDS ORDERED: NICARDIPINE 100MCG/ML 10ML VIAL (CATH LAB) IV ONE (09:57)
[2022-07-06] MEDS ORDERED: ONDANSETRON HCL 4MG/2ML INJ IV PRN (10:00)
[2022-07-06] MEDS ORDERED: ACETAMINOPHEN 325MG TABLET PO PRN (10:00)
[2022-07-06] MEDS ORDERED: CLOPIDOGREL 75MG TABLET PO NR (10:00)
[2022-07-06] MEDS ORDERED: MORPHINE SULFATE 2 MG/ML CPJ (NOT FOR IM USE) IV PRN ×2 (10:00)
[2022-07-06] MEDS ORDERED: SODIUM CHLORIDE 0.45% 1,000 ML IV ONE (10:00)
[2022-07-06] MEDS ORDERED: ATROPINE SULFATE 1MG/10ML SYR IV PRN (10:00)
[2022-07-06] MEDS ORDERED: DEXTROSE 50% WATER 50ML SYRINGE IV PRN (10:15)
[2022-07-06] MEDS: BLOOD SUGAR DIAGNOSTIC STRIP TEST SCH ×3 (11:24→21:59)
[2022-07-06] MEDS ORDERED: NALOXONE HCL 0.4MG/ML VIAL IV PRN (11:45)
[2022-07-06] MEDS: INSULIN LISPRO 100 UNITS/ML SUBCUT SCH ×3 (11:54→22:02)
[2022-07-06] MEDS: AMIODARONE HCL 200 MG TABLET PO SCH ×2 (12:05→18:24)
[2022-07-06] MEDS: LOSARTAN POTASSIUM 25 MG TABLET PO SCH (12:05)
[2022-07-06] MEDS: FUROSEMIDE 40MG/4 ML UDC PO SCH (22:02)
[2022-07-07] VITALS (14 sets, daily range): BP systolic 132–165; BP diastolic 59–79
[2022-07-07 05:32] LABS: CHLORIDE 105 mEq/L (98-107)
[2022-07-07 06:18] LABS: BASOPHILS % 0.9 % (0.0-2.0); HEMATOCRIT. 41.9 % (36.0-48.0); HEMOGLOBIN. 14.3 g/dL (12.0-16.0); LYMPHOCYTES % 15.7 % (20.0-50.0); MEAN CORPUSCULAR HEMOGLOBIN 30.9 pg (28.0-32.0); MEAN CORPUSCULAR VOLUME 90.9 fL (81.0-99.0); MEAN PLATELET VOLUME 8.3 fl (7.4-10.4); MONOCYTES % 9.9 % (2.0-8.0); NEUTROPHILS % 70.5 % (40.0-76.0); PLATELET 188 x1000/uL (130-400); RED BLOOD CELL COUNT 4.61 mill/uL (4.2-5.4); RED CELL DISTRIBUTION WIDTH 14.1 % (11.6-14.6)
[2022-07-07] MEDS: BLOOD SUGAR DIAGNOSTIC STRIP TEST SCH (06:42)
[2022-07-07] MEDS: INSULIN LISPRO 100 UNITS/ML SUBCUT SCH (08:00)
[2022-07-07] MEDS ORDERED: ASPIRIN 81MG TABLET PO SCH (09:00)
[2022-07-07] MEDS ORDERED: CLOPIDOGREL 75MG TABLET PO SCH (09:00)
[2022-07-07] MEDS: FUROSEMIDE 40MG/4 ML UDC PO SCH (09:06)
[2022-07-07] MEDS: LOSARTAN POTASSIUM 25 MG TABLET PO SCH (09:06)
[2022-07-07] MEDS: AMIODARONE HCL 200 MG TABLET PO SCH (09:07)
== END 2022-07-07 11:52 | disposition home or self-care (01) | DRG 247 ==
LOC: CCL 07:07 → 5EST 15:19
PROVIDERS: ADMIT Specialist; ATTEND Specialist
PROC: 027034Z Dilation of Coronary Artery, One Artery with Drug-eluting Intraluminal Device, Percutaneous Approach (ICD-10-PCS; principal; 2022-07-06)
PROC: 4A023N8 Measurement of Cardiac Sampling and Pressure, Bilateral, Percutaneous Approach (ICD-10-PCS; 2022-07-06)
PROC: B2111ZZ Fluoroscopy of Multiple Coronary Arteries using Low Osmolar Contrast (ICD-10-PCS; 2022-07-06)
DX: I25.10 Atherosclerotic heart disease of native coronary artery without angina pectoris (principal); I50.30 Unspecified diastolic (congestive) heart failure; Z68.42 Body mass index [BMI] 45.0-49.9, adult; I35.0 Nonrheumatic aortic (valve) stenosis; E78.5 Hyperlipidemia, unspecified; I48.0 Paroxysmal atrial fibrillation; E66.9 Obesity, unspecified; R77.8 Other specified abnormalities of plasma proteins; E11.9 Type 2 diabetes mellitus without complications; I11.0 Hypertensive heart disease with heart failure; Z95.0 Presence of cardiac pacemaker; Z91.010 Allergy to peanuts; Z87.891 Personal history of nicotine dependence; Z79.01 Long term (current) use of anticoagulants; Z79.4 Long term (current) use of insulin; Z79.82 Long term (current) use of aspirin; Z79.84 Long term (current) use of oral hypoglycemic drugs; Z79.899 Other long term (current) drug therapy; Y83.8 Other surgical procedures as the cause of abnormal reaction of the patient, or of later complication, without mention of misadventure at the time of the procedure; Y92.89 Other specified places as the place of occurrence of the external cause
CPT/HCPCS: 36415; 80048; 82962; 83735; 85025; 92928; 93005; 93460; C1769; C1874; C1887; C1893; J0360; J1644; J1815; J1940; J2250; J3010; J3490; Q9967